=== PATIENT | female | born 1930 | race Caucasian/White ===

== ENCOUNTER 2018-12-29 14:53 | Inpatient (IN) | payer BC, MEDICARE ==
[2018-12-29] MEDS: morphine 2 MG INJ IV ×2 (16:11→21:42)
[2018-12-29] MEDS: ONDANSETRON 4 MG INJ IV ×3 (16:11→21:38)
[2018-12-29] MEDS: SOD CHLORIDE 0.9% 1,000 ML IV (16:12)
[2018-12-29 16:20] LABS: ADD MAN DIFF? NO
[2018-12-29 16:21] LABS: BASOPHIL # 0.1 10^3/ul (0.0-0.1); BASOPHILS % 0.3 % (0.0-2.0); HEMATOCRIT 40.5 % (37.0-47.0); LYMPHOCYTES # 2.1 10^3/ul (0.8-2.9); LYMPHOCYTES % 11.4 % (15.0-51.0); MEAN CORPUSCULAR HEMOGLOBIN 28.3 pg (29.0-33.0); MEAN CORPUSCULAR HGB CONC 32.1 g/dl (32.0-37.0); MEAN CORPUSCULAR VOLUME 88.2 fl (82.0-101.0); MEAN PLATELET VOLUME 11.1 fl (7.4-10.4); MONOCYTE # 1.4 10^3/ul (0.3-0.9); MONOCYTES % 7.7 % (0.0-11.0); NEUTROPHIL # 14.5 10^3/ul (1.6-7.5); NEUTROPHILS % 80.2 % (39.0-77.0); PLATELET COUNT 233 10^3/UL (140-415); RED BLOOD COUNT 4.59 10^6/ul (4.20-5.40); RED CELL DISTRIBUTION WIDTH 14.1 % (11.5-14.5)
[2018-12-29 16:21] LABS: WHITE BLOOD COUNT 18.1 10^3/ul (4.8-10.8)
[2018-12-29 16:27] LABS: ALANINE AMINOTRANSFERASE 16 IU/L (13-69); ALBUMIN 4.4 g/dl (3.3-4.9); ALBUMIN/GLOBULIN RATIO 1.62; ALKALINE PHOSPHATASE 77 IU/L (42-121); ANION GAP 8 (5-13); ASPARTATE AMINO TRANSFERASE 20 IU/L (15-46); BILIRUBIN,INDIRECT 0.3 mg/dl (0-1.1); BILIRUBIN,TOTAL 0.3 mg/dl (0.2-1.3); BLOOD UREA NITROGEN 18 mg/dl (7-20); CALCIUM 10.2 mg/dl (8.4-10.2); CARBON DIOXIDE 26 mmol/L (21-31); CHLORIDE 105 mmol/L (97-110); GLUCOSE 137 mg/dl (70-220); LIPASE 17 U/L (23-300); POTASSIUM 3.8 mmol/L (3.5-5.1); SODIUM 139 mmol/L (135-144); TOTAL PROTEIN 7.1 g/dl (6.1-8.1)
[2018-12-29 16:38] LABS: TROPONIN-I < 0.012 ng/ml (0.000-0.120)
[2018-12-29 16:59] LABS: ADD UMIC YES; UR ASCORBIC ACID NEGATIVE (NEGATIVE); UR BACTERIA FEW /HPF (NONE SEEN); UR BILIRUBIN (Dip) NEGATIVE (NEGATIVE); UR BLOOD (Dip) 3+ mg/dL (NEGATIVE); UR CLARITY CLOUDY (CLEAR); UR COLOR YELLOW (YELLOW); UR GLUCOSE (Dip) NEGATIVE (NEGATIVE); UR KETONES (Dip) NEGATIVE (NEGATIVE); UR LEUKOCYTE ESTERASE (Dip) TRACE Leu/ul (NEGATIVE); UR NITRITE (Dip) NEGATIVE (NEGATIVE); UR RBC 22 /HPF (0-5); UR SPECIFIC GRAVITY (Dip) 1.015 (1.003-1.030); UR TOTAL PROTEIN (Dip) NEGATIVE (NEGATIVE); UR UROBILINOGEN (Dip) NEGATIVE (NEGATIVE); UR WBC 25 /HPF (0-5)
[2018-12-29] MEDS ORDERED: morphine 4 MG/ML VIAL (17:37)
[2018-12-29] MEDS: morphine 4 MG/ML VIAL IV (17:45)
[2018-12-29] MEDS ORDERED: ACETAMINOPHEN 325 MG TAB PO (18:30)
[2018-12-29] MEDS ORDERED: ONDANSETRON 4 MG INJ IV (18:30)
[2018-12-29] MEDS: CYCLOSPORINE 0.05% OPH DROPERETTE BOTH EYES (21:00)
[2018-12-29] MEDS: POTASSIUM CHLORIDE 10 MEQ in SOD CHLORIDE 0.9% 1,000 ML IV (21:30)
[2018-12-29] MEDS: hydrALAzine 20 MG INJ IV (23:08)
[2018-12-29] MEDS: MEROPENEM 1 GM/50ML(PMX) 50 ML IVPB (23:11)
[2018-12-29] MEDS: DILTIAZEM 25 MG INJ IV (23:20)
[2018-12-30] MEDS: morphine 2 MG INJ IV ×4 (01:52→23:16)
[2018-12-30] MEDS: hydrALAzine 20 MG INJ IV ×2 (02:22→21:54)
[2018-12-30] MEDS: ONDANSETRON 4 MG INJ IV ×2 (04:34→10:45)
[2018-12-30] MEDS: DILTIAZEM 25 MG INJ IV ×3 (05:48→23:47)
[2018-12-30] MEDS: MEROPENEM 1 GM/50ML(PMX) 50 ML IVPB ×3 (05:48→21:58)
[2018-12-30 06:00] LABS: ADD MAN DIFF? NO
[2018-12-30] MEDS ORDERED: PANTOPRAZOLE 40 MG INJ IV (06:00)
[2018-12-30 06:09] LABS: BASOPHILS % 0.2 % (0.0-2.0); HEMATOCRIT 40.6 % (37.0-47.0); HEMOGLOBIN 13.1 g/dl (12.0-16.0); LYMPHOCYTES % 5.4 % (15.0-51.0); MEAN CORPUSCULAR HEMOGLOBIN 28.4 pg (29.0-33.0); MEAN CORPUSCULAR HGB CONC 32.3 g/dl (32.0-37.0); MEAN CORPUSCULAR VOLUME 87.9 fl (82.0-101.0); MEAN PLATELET VOLUME 10.5 fl (7.4-10.4); MONOCYTE # 1.3 10^3/ul (0.3-0.9); MONOCYTES % 6.7 % (0.0-11.0); NEUTROPHIL # 16.5 10^3/ul (1.6-7.5); NEUTROPHILS % 87.2 % (39.0-77.0); PLATELET COUNT 235 10^3/UL (140-415); RED BLOOD COUNT 4.62 10^6/ul (4.20-5.40); RED CELL DISTRIBUTION WIDTH 14.3 % (11.5-14.5)
[2018-12-30 06:09] LABS: WHITE BLOOD COUNT 18.9 10^3/ul (4.8-10.8)
[2018-12-30 06:30] LABS: ALANINE AMINOTRANSFERASE 20 IU/L (13-69); ALBUMIN 3.4 g/dl (3.3-4.9); ALBUMIN/GLOBULIN RATIO 1.41; ALKALINE PHOSPHATASE 67 IU/L (42-121); ANION GAP 3 (5-13); ASPARTATE AMINO TRANSFERASE 15 IU/L (15-46); BILIRUBIN,INDIRECT 0.4 mg/dl (0-1.1); BILIRUBIN,TOTAL 0.4 mg/dl (0.2-1.3); BLOOD UREA NITROGEN 14 mg/dl (7-20); CALCIUM 9.2 mg/dl (8.4-10.2); CARBON DIOXIDE 25 mmol/L (21-31); CHLORIDE 110 mmol/L (97-110); CREATININE 0.46 mg/dl (0.44-1.00); GLUCOSE 123 mg/dl (70-220); POTASSIUM 3.9 mmol/L (3.5-5.1); SODIUM 138 mmol/L (135-144); TOTAL PROTEIN 5.8 g/dl (6.1-8.1)
[2018-12-30 06:32] LABS: DIGOXIN 0.4 ng/ml (1.0-2.0)
[2018-12-30] MEDS ORDERED: ENOXAPARIN 30 MG/0.3 ML SYG SC (09:00)
[2018-12-30] MEDS: CYCLOSPORINE 0.05% OPH DROPERETTE BOTH EYES ×2 (09:00→21:00)
[2018-12-30] MEDS: FAMOTIDINE 20 MG INJ IV ×2 (09:07→21:53)
[2018-12-30 10:14] LABS: INR 2.54; PROTIME 27.4 Sec (11.9-14.9); PT RATIO 2.1
[2018-12-30] MEDS: POTASSIUM CHLORIDE 10 MEQ in SOD CHLORIDE 0.9% 1,000 ML IV ×2 (10:36→17:36)
[2018-12-30] MEDS: DIGOXIN 500 MCG INJ IV (12:38)
[2018-12-30] MEDS: PHYTONADIONE 10 MG in DEXTROSE 5% 50 ML IVPB ×2 (13:07→23:35)
[2018-12-30] MEDS: LEVALBUTEROL (NEB) 0.63 MG/3 ML AMP HHN (16:42)
[2018-12-30 17:05] LABS: INR 1.64; PROTIME 19.5 Sec (11.9-14.9); PT RATIO 1.5
[2018-12-30 17:06] LABS: PARTIAL THROMBOPLASTIN TIME 34.1 Sec (23.0-35.0)
[2018-12-30] MEDS: LORAZEPAM 2 MG INJ IV (18:30)
[2018-12-30] MEDS: MOMETASONE 0.24 GM INHALER INH (21:47)
[2018-12-31] MEDS: ONDANSETRON 4 MG INJ IV (03:53)
[2018-12-31] MEDS: LORAZEPAM 2 MG INJ IV (03:54)
[2018-12-31] MEDS: POTASSIUM CHLORIDE 10 MEQ in SOD CHLORIDE 0.9% 1,000 ML IV ×3 (03:58→23:45)
[2018-12-31] MEDS: MEROPENEM 1 GM/50ML(PMX) 50 ML IVPB ×3 (05:21→21:30)
[2018-12-31] MEDS: DILTIAZEM 25 MG INJ IV ×5 (05:21→23:35)
[2018-12-31 06:08] LABS: ADD MAN DIFF? NO
[2018-12-31 06:17] LABS: WHITE BLOOD COUNT 11.2 10^3/ul (4.8-10.8)
[2018-12-31 06:17] LABS: BASOPHIL # 0.1 10^3/ul (0.0-0.1); BASOPHILS % 0.6 % (0.0-2.0); EOSINOPHILS % 0.2 % (0.0-7.0); HEMATOCRIT 38.3 % (37.0-47.0); HEMOGLOBIN 12.3 g/dl (12.0-16.0); LYMPHOCYTES # 1.5 10^3/ul (0.8-2.9); LYMPHOCYTES % 13.2 % (15.0-51.0); MEAN CORPUSCULAR HEMOGLOBIN 28.7 pg (29.0-33.0); MEAN CORPUSCULAR HGB CONC 32.1 g/dl (32.0-37.0); MEAN CORPUSCULAR VOLUME 89.3 fl (82.0-101.0); MEAN PLATELET VOLUME 10.6 fl (7.4-10.4); MONOCYTE # 1.2 10^3/ul (0.3-0.9); MONOCYTES % 10.3 % (0.0-11.0); NEUTROPHIL # 8.5 10^3/ul (1.6-7.5); NEUTROPHILS % 75.2 % (39.0-77.0); PLATELET COUNT 178 10^3/UL (140-415); RED BLOOD COUNT 4.29 10^6/ul (4.20-5.40); RED CELL DISTRIBUTION WIDTH 14.5 % (11.5-14.5)
[2018-12-31 06:32] LABS: INR 1.14; PROTIME 14.7 Sec (11.9-14.9); PT RATIO 1.1
[2018-12-31 06:33] LABS: PARTIAL THROMBOPLASTIN TIME 29.1 Sec (23.0-35.0)
[2018-12-31 06:49] LABS: ALANINE AMINOTRANSFERASE 22 IU/L (13-69); ALBUMIN 3.2 g/dl (3.3-4.9); ALBUMIN/GLOBULIN RATIO 1.23; ALKALINE PHOSPHATASE 76 IU/L (42-121); ANION GAP 6 (5-13); ASPARTATE AMINO TRANSFERASE 15 IU/L (15-46); BILIRUBIN,INDIRECT 0.7 mg/dl (0-1.1); BILIRUBIN,TOTAL 0.7 mg/dl (0.2-1.3); BLOOD UREA NITROGEN 8 mg/dl (7-20); CALCIUM 9.2 mg/dl (8.4-10.2); CARBON DIOXIDE 25 mmol/L (21-31); CHLORIDE 108 mmol/L (97-110); CREATININE 0.43 mg/dl (0.44-1.00); GLUCOSE 94 mg/dl (70-220); MAGNESIUM 1.9 mg/dl (1.7-2.5); POTASSIUM 3.7 mmol/L (3.5-5.1); SODIUM 139 mmol/L (135-144); TOTAL PROTEIN 5.8 g/dl (6.1-8.1)
[2018-12-31] MEDS: MOMETASONE 0.24 GM INHALER INH ×2 (08:27→20:00)
[2018-12-31] MEDS: CYCLOSPORINE 0.05% OPH DROPERETTE BOTH EYES ×2 (08:29→21:00)
[2018-12-31] MEDS: FAMOTIDINE 20 MG INJ IV ×2 (08:30→21:31)
[2018-12-31] MEDS ORDERED: DILTIAZEM 25 MG INJ IV (12:00)
[2018-12-31] MEDS: DIGOXIN 500 MCG INJ IV (12:53)
[2018-12-31] MEDS: morphine 2 MG INJ IV ×2 (13:07→21:32)
[2018-12-31] MEDS: POTASSIUM CHLORIDE 100 ML IVPB (14:01)
[2018-12-31] MEDS: MAGNESIUM SULFATE 2 GM/50 ML 50 ML IVPB (15:57)
[2018-12-31] MEDS: hydrALAzine 20 MG INJ IV (21:31)
[2019-01-01] MEDS: POTASSIUM CHLORIDE 10 MEQ in SOD CHLORIDE 0.9% 1,000 ML IV ×2 (05:20→20:09)
[2019-01-01] MEDS: DILTIAZEM 25 MG INJ IV ×3 (05:25→18:00)
[2019-01-01] MEDS: MEROPENEM 1 GM/50ML(PMX) 50 ML IVPB ×3 (05:26→23:43)
[2019-01-01 05:38] LABS: ADD MAN DIFF? NO
[2019-01-01 05:56] LABS: BASOPHIL # 0.1 10^3/ul (0.0-0.1); BASOPHILS % 0.5 % (0.0-2.0); EOSINOPHILS # 0.2 10^3/ul (0.0-0.5); EOSINOPHILS % 1.7 % (0.0-7.0); HEMATOCRIT 41.1 % (37.0-47.0); HEMOGLOBIN 13.4 g/dl (12.0-16.0); LYMPHOCYTES # 1.7 10^3/ul (0.8-2.9); LYMPHOCYTES % 15.3 % (15.0-51.0); MEAN CORPUSCULAR HEMOGLOBIN 28.6 pg (29.0-33.0); MEAN CORPUSCULAR HGB CONC 32.6 g/dl (32.0-37.0); MEAN CORPUSCULAR VOLUME 87.8 fl (82.0-101.0); MEAN PLATELET VOLUME 10.3 fl (7.4-10.4); MONOCYTE # 1.1 10^3/ul (0.3-0.9); MONOCYTES % 9.8 % (0.0-11.0); NEUTROPHIL # 7.9 10^3/ul (1.6-7.5); NEUTROPHILS % 72.2 % (39.0-77.0); PLATELET COUNT 184 10^3/UL (140-415); RED BLOOD COUNT 4.68 10^6/ul (4.20-5.40); RED CELL DISTRIBUTION WIDTH 14.3 % (11.5-14.5)
[2019-01-01 06:15] LABS: INR 1.03; PROTIME 13.6 Sec (11.9-14.9); PT RATIO 1.1
[2019-01-01 06:16] LABS: PARTIAL THROMBOPLASTIN TIME 29.5 Sec (23.0-35.0)
[2019-01-01 06:17] LABS: ANION GAP 8 (5-13); BLOOD UREA NITROGEN 8 mg/dl (7-20); CALCIUM 9.2 mg/dl (8.4-10.2); CARBON DIOXIDE 24 mmol/L (21-31); CHLORIDE 105 mmol/L (97-110); CREATININE 0.39 mg/dl (0.44-1.00); GLUCOSE 80 mg/dl (70-220); MAGNESIUM 2.3 mg/dl (1.7-2.5); POTASSIUM 4.3 mmol/L (3.5-5.1); SODIUM 137 mmol/L (135-144)
[2019-01-01] MEDS ORDERED: DESFLURANE 15 MIN (07:00)
[2019-01-01] MEDS: MOMETASONE 0.24 GM INHALER INH ×2 (08:35→20:08)
[2019-01-01] MEDS: CYCLOSPORINE 0.05% OPH DROPERETTE BOTH EYES ×2 (08:37→20:08)
[2019-01-01] MEDS: FAMOTIDINE 20 MG INJ IV ×2 (08:37→20:08)
[2019-01-01] MEDS: DIGOXIN 500 MCG INJ IV (12:28)
[2019-01-01] MEDS ORDERED: FENTAnyl 50 MCG/ML VIAL IV (16:30)
[2019-01-01] MEDS ORDERED: hydrALAzine 20 MG INJ IV (16:30)
[2019-01-01] MEDS ORDERED: METOCLOPRAMIDE 10 MG INJ IV (16:30)
[2019-01-01] MEDS ORDERED: ONDANSETRON 4 MG INJ IV (16:30)
[2019-01-01] MEDS ORDERED: LABETALOL HCL 20MG INJ IV (16:30)
[2019-01-01] MEDS ORDERED: ALBUTEROL 0.083% (NEB) 2.5 MG/3 ML AMP HHN (16:30)
[2019-01-01] MEDS ORDERED: FENTAnyl 50 MCG/ML VIAL (16:37)
[2019-01-01] MEDS ORDERED: ROPIVACAINE 0.5 % 30 ML VIAL (16:37)
[2019-01-01] MEDS ORDERED: CLINDAMYCIN 600 MG/D5W (PMX) 50 ML IVPB (17:09)
[2019-01-01] MEDS ORDERED: PROPOFOL 20 ML (17:09)
[2019-01-01] MEDS ORDERED: SUGAMMADEX SODIUM 200 MG/2 ML VIAL IV (17:09)
[2019-01-01] MEDS ORDERED: SUCCINYLCHOLINE CHLORIDE 100 MG/5 ML SYG IV (17:09)
[2019-01-01] MEDS ORDERED: LIDOCAINE 100 MG SYRINGE (17:09)
[2019-01-01] MEDS ORDERED: ROCURONIUM 50 MG INJ (17:09)
[2019-01-02] MEDS: DILTIAZEM 25 MG INJ IV ×4 (00:28→17:47)
[2019-01-02] MEDS: MEROPENEM 1 GM/50ML(PMX) 50 ML IVPB ×3 (05:26→19:58)
[2019-01-02 06:08] LABS: ADD MAN DIFF? NO
[2019-01-02 06:13] LABS: BASOPHIL # 0.1 10^3/ul (0.0-0.1); BASOPHILS % 0.5 % (0.0-2.0); EOSINOPHILS # 0.2 10^3/ul (0.0-0.5); EOSINOPHILS % 1.4 % (0.0-7.0); HEMATOCRIT 38.5 % (37.0-47.0); HEMOGLOBIN 12.3 g/dl (12.0-16.0); LYMPHOCYTES % 7.4 % (15.0-51.0); MEAN CORPUSCULAR HEMOGLOBIN 28.1 pg (29.0-33.0); MEAN CORPUSCULAR HGB CONC 31.9 g/dl (32.0-37.0); MEAN CORPUSCULAR VOLUME 88.1 fl (82.0-101.0); MEAN PLATELET VOLUME 10.3 fl (7.4-10.4); MONOCYTE # 1.2 10^3/ul (0.3-0.9); MONOCYTES % 9.4 % (0.0-11.0); NEUTROPHIL # 10.6 10^3/ul (1.6-7.5); NEUTROPHILS % 80.5 % (39.0-77.0); PLATELET COUNT 199 10^3/UL (140-415); RED BLOOD COUNT 4.37 10^6/ul (4.20-5.40); RED CELL DISTRIBUTION WIDTH 13.7 % (11.5-14.5)
[2019-01-02 06:13] LABS: WHITE BLOOD COUNT 13.1 10^3/ul (4.8-10.8)
[2019-01-02 06:42] LABS: ALANINE AMINOTRANSFERASE 19 IU/L (13-69); ALBUMIN 3.1 g/dl (3.3-4.9); ALBUMIN/GLOBULIN RATIO 1.14; ALKALINE PHOSPHATASE 63 IU/L (42-121); ANION GAP 9 (5-13); ASPARTATE AMINO TRANSFERASE 15 IU/L (15-46); BILIRUBIN,INDIRECT 0.7 mg/dl (0-1.1); BILIRUBIN,TOTAL 0.7 mg/dl (0.2-1.3); BLOOD UREA NITROGEN 11 mg/dl (7-20); CARBON DIOXIDE 22 mmol/L (21-31); CHLORIDE 105 mmol/L (97-110); CREATININE 0.45 mg/dl (0.44-1.00); GLUCOSE 77 mg/dl (70-220); MAGNESIUM 2.2 mg/dl (1.7-2.5); POTASSIUM 4.3 mmol/L (3.5-5.1); SODIUM 136 mmol/L (135-144); TOTAL PROTEIN 5.8 g/dl (6.1-8.1)
[2019-01-02 06:44] LABS: INR 1.09; PROTIME 14.2 Sec (11.9-14.9); PT RATIO 1.1
[2019-01-02] MEDS: MOMETASONE 0.24 GM INHALER INH ×2 (09:00→19:57)
[2019-01-02] MEDS: CYCLOSPORINE 0.05% OPH DROPERETTE BOTH EYES ×2 (09:08→19:57)
[2019-01-02] MEDS: SERTRALINE 50 MG TAB PO (09:08)
[2019-01-02] MEDS: ENOXAPARIN 30 MG/0.3 ML SYG SC (09:23)
[2019-01-02] MEDS: FAMOTIDINE 20 MG INJ IV (10:20)
[2019-01-02] MEDS: DIGOXIN 500 MCG INJ IV (12:58)
[2019-01-02] MEDS: WARFARIN 5 MG TAB PO (17:38)
[2019-01-03] MEDS: DILTIAZEM 25 MG INJ IV ×3 (00:45→12:16)
[2019-01-03 05:38] LABS: ADD MAN DIFF? NO
[2019-01-03 05:41] LABS: WHITE BLOOD COUNT 10.1 10^3/ul (4.8-10.8)
[2019-01-03 05:41] LABS: BASOPHIL # 0.1 10^3/ul (0.0-0.1); BASOPHILS % 0.6 % (0.0-2.0); EOSINOPHILS # 0.3 10^3/ul (0.0-0.5); EOSINOPHILS % 3.1 % (0.0-7.0); HEMATOCRIT 37.7 % (37.0-47.0); HEMOGLOBIN 12.3 g/dl (12.0-16.0); LYMPHOCYTES # 1.6 10^3/ul (0.8-2.9); LYMPHOCYTES % 15.6 % (15.0-51.0); MEAN CORPUSCULAR HEMOGLOBIN 28.7 pg (29.0-33.0); MEAN CORPUSCULAR HGB CONC 32.6 g/dl (32.0-37.0); MEAN CORPUSCULAR VOLUME 88.1 fl (82.0-101.0); MEAN PLATELET VOLUME 10.5 fl (7.4-10.4); MONOCYTE # 1.1 10^3/ul (0.3-0.9); MONOCYTES % 10.9 % (0.0-11.0); NEUTROPHILS % 69.1 % (39.0-77.0); PLATELET COUNT 202 10^3/UL (140-415); RED BLOOD COUNT 4.28 10^6/ul (4.20-5.40); RED CELL DISTRIBUTION WIDTH 13.9 % (11.5-14.5)
[2019-01-03 05:59] LABS: INR 0.97
[2019-01-03 06:00] LABS: PARTIAL THROMBOPLASTIN TIME 29.7 Sec (23.0-35.0)
[2019-01-03 06:10] LABS: ALANINE AMINOTRANSFERASE 23 IU/L (13-69); ALBUMIN 3.2 g/dl (3.3-4.9); ALBUMIN/GLOBULIN RATIO 1.28; ALKALINE PHOSPHATASE 59 IU/L (42-121); ANION GAP 5 (5-13); ASPARTATE AMINO TRANSFERASE 19 IU/L (15-46); BILIRUBIN,INDIRECT 0.6 mg/dl (0-1.1); BILIRUBIN,TOTAL 0.6 mg/dl (0.2-1.3); BLOOD UREA NITROGEN 12 mg/dl (7-20); CALCIUM 9.7 mg/dl (8.4-10.2); CARBON DIOXIDE 26 mmol/L (21-31); CHLORIDE 106 mmol/L (97-110); CREATININE 0.41 mg/dl (0.44-1.00); GLUCOSE 91 mg/dl (70-220); MAGNESIUM 2.4 mg/dl (1.7-2.5); PHOSPHORUS 2.1 mg/dl (2.5-4.9); POTASSIUM 3.9 mmol/L (3.5-5.1); SODIUM 137 mmol/L (135-144); TOTAL PROTEIN 5.7 g/dl (6.1-8.1)
[2019-01-03] MEDS: MEROPENEM 1 GM/50ML(PMX) 50 ML IVPB ×3 (06:11→20:10)
[2019-01-03] MEDS: morphine 2 MG INJ IV (06:11)
[2019-01-03] MEDS: FAMOTIDINE 20 MG TAB PO (09:01)
[2019-01-03] MEDS: SERTRALINE 50 MG TAB PO (09:01)
[2019-01-03] MEDS: MOMETASONE 0.24 GM INHALER INH ×2 (09:02→20:11)
[2019-01-03] MEDS: NEUTRA-PHOS 250 MG PACKET PO (09:02)
[2019-01-03] MEDS: CYCLOSPORINE 0.05% OPH DROPERETTE BOTH EYES ×2 (09:06→20:10)
[2019-01-03] MEDS: ENOXAPARIN 30 MG/0.3 ML SYG SC (09:28)
[2019-01-03] MEDS: DIGOXIN 500 MCG INJ IV (13:13)
[2019-01-03] MEDS ORDERED: DILTIAZEM 25 MG INJ IV (15:30)
[2019-01-03] MEDS: ACETAMINOPHEN 500 MG TAB PO (18:05)
[2019-01-03] MEDS: CREON (24K-76K-120K) 1 CAP PO (18:15)
[2019-01-03] MEDS: DILTIAZEM 30 MG TAB PO (20:11)
[2019-01-04] MEDS: ACETAMINOPHEN 500 MG TAB PO (00:02)
[2019-01-04 06:07] LABS: ADD MAN DIFF? NO
[2019-01-04 06:08] LABS: WHITE BLOOD COUNT 8.5 10^3/ul (4.8-10.8)
[2019-01-04 06:08] LABS: BASOPHIL # 0.1 10^3/ul (0.0-0.1); BASOPHILS % 0.8 % (0.0-2.0); EOSINOPHILS # 0.4 10^3/ul (0.0-0.5); EOSINOPHILS % 4.1 % (0.0-7.0); HEMATOCRIT 38.3 % (37.0-47.0); HEMOGLOBIN 12.2 g/dl (12.0-16.0); LYMPHOCYTES # 1.4 10^3/ul (0.8-2.9); LYMPHOCYTES % 16.8 % (15.0-51.0); MEAN CORPUSCULAR HEMOGLOBIN 28.4 pg (29.0-33.0); MEAN CORPUSCULAR HGB CONC 31.9 g/dl (32.0-37.0); MEAN CORPUSCULAR VOLUME 89.1 fl (82.0-101.0); MEAN PLATELET VOLUME 10.4 fl (7.4-10.4); MONOCYTE # 0.9 10^3/ul (0.3-0.9); MONOCYTES % 10.5 % (0.0-11.0); NEUTROPHIL # 5.7 10^3/ul (1.6-7.5); NEUTROPHILS % 67.1 % (39.0-77.0); PLATELET COUNT 212 10^3/UL (140-415); RED CELL DISTRIBUTION WIDTH 13.8 % (11.5-14.5)
[2019-01-04] MEDS: MEROPENEM 1 GM/50ML(PMX) 50 ML IVPB ×3 (06:29→21:12)
[2019-01-04 06:33] LABS: ALANINE AMINOTRANSFERASE 19 IU/L (13-69); ALBUMIN 3.1 g/dl (3.3-4.9); ALBUMIN/GLOBULIN RATIO 1.24; ALKALINE PHOSPHATASE 57 IU/L (42-121); ANION GAP 7 (5-13); ASPARTATE AMINO TRANSFERASE 15 IU/L (15-46); BILIRUBIN,INDIRECT 0.5 mg/dl (0-1.1); BILIRUBIN,TOTAL 0.5 mg/dl (0.2-1.3); BLOOD UREA NITROGEN 15 mg/dl (7-20); CARBON DIOXIDE 26 mmol/L (21-31); CHLORIDE 106 mmol/L (97-110); GLUCOSE 72 mg/dl (70-220); MAGNESIUM 2.4 mg/dl (1.7-2.5); PHOSPHORUS 2.3 mg/dl (2.5-4.9); POTASSIUM 3.6 mmol/L (3.5-5.1); SODIUM 139 mmol/L (135-144); TOTAL PROTEIN 5.6 g/dl (6.1-8.1)
[2019-01-04 07:35] LABS: PROTIME 12.3 Sec (11.9-14.9)
[2019-01-04] MEDS: CYCLOSPORINE 0.05% OPH DROPERETTE BOTH EYES ×2 (09:00→21:12)
[2019-01-04] MEDS: NEUTRA-PHOS 250 MG PACKET PO ×2 (09:24→21:12)
[2019-01-04] MEDS: CREON (24K-76K-120K) 1 CAP PO ×3 (09:24→17:23)
[2019-01-04] MEDS: MOMETASONE 0.24 GM INHALER INH ×2 (09:24→20:00)
[2019-01-04] MEDS: SERTRALINE 50 MG TAB PO (09:25)
[2019-01-04] MEDS: DILTIAZEM 30 MG TAB PO ×3 (09:25→21:13)
[2019-01-04] MEDS: FAMOTIDINE 20 MG TAB PO (09:25)
[2019-01-04] MEDS: ENOXAPARIN 60 MG/0.6 ML SYG SC (09:36)
[2019-01-04] MEDS: DIGOXIN 0.125 MG TAB PO (13:28)
[2019-01-04] MEDS: WARFARIN 5 MG TAB PO (17:23)
[2019-01-05 06:00] LABS: ADD MAN DIFF? NO
[2019-01-05 06:10] LABS: WHITE BLOOD COUNT 8.3 10^3/ul (4.8-10.8)
[2019-01-05 06:10] LABS: BASOPHIL # 0.1 10^3/ul (0.0-0.1); BASOPHILS % 0.7 % (0.0-2.0); EOSINOPHILS # 0.2 10^3/ul (0.0-0.5); EOSINOPHILS % 2.9 % (0.0-7.0); HEMATOCRIT 37.1 % (37.0-47.0); HEMOGLOBIN 11.9 g/dl (12.0-16.0); LYMPHOCYTES # 1.4 10^3/ul (0.8-2.9); LYMPHOCYTES % 17.1 % (15.0-51.0); MEAN CORPUSCULAR HEMOGLOBIN 28.7 pg (29.0-33.0); MEAN CORPUSCULAR HGB CONC 32.1 g/dl (32.0-37.0); MEAN CORPUSCULAR VOLUME 89.6 fl (82.0-101.0); MEAN PLATELET VOLUME 10.4 fl (7.4-10.4); MONOCYTE # 0.8 10^3/ul (0.3-0.9); MONOCYTES % 10.2 % (0.0-11.0); NEUTROPHIL # 5.7 10^3/ul (1.6-7.5); NEUTROPHILS % 68.5 % (39.0-77.0); PLATELET COUNT 223 10^3/UL (140-415); RED BLOOD COUNT 4.14 10^6/ul (4.20-5.40); RED CELL DISTRIBUTION WIDTH 13.5 % (11.5-14.5)
[2019-01-05 06:31] LABS: INR 0.93; PROTIME 12.6 Sec (11.9-14.9)
[2019-01-05 06:58] LABS: ALANINE AMINOTRANSFERASE 21 IU/L (13-69); ALBUMIN 3.1 g/dl (3.3-4.9); ALBUMIN/GLOBULIN RATIO 1.24; ALKALINE PHOSPHATASE 57 IU/L (42-121); ANION GAP 9 (5-13); ASPARTATE AMINO TRANSFERASE 14 IU/L (15-46); BILIRUBIN,INDIRECT 0.4 mg/dl (0-1.1); BILIRUBIN,TOTAL 0.4 mg/dl (0.2-1.3); BLOOD UREA NITROGEN 13 mg/dl (7-20); CALCIUM 9.9 mg/dl (8.4-10.2); CARBON DIOXIDE 26 mmol/L (21-31); CHLORIDE 105 mmol/L (97-110); CREATININE 0.39 mg/dl (0.44-1.00); GLUCOSE 87 mg/dl (70-220); MAGNESIUM 2.3 mg/dl (1.7-2.5); PHOSPHORUS 2.5 mg/dl (2.5-4.9); POTASSIUM 3.9 mmol/L (3.5-5.1); SODIUM 140 mmol/L (135-144); TOTAL PROTEIN 5.6 g/dl (6.1-8.1)
[2019-01-05] MEDS: SERTRALINE 50 MG TAB PO (08:26)
[2019-01-05] MEDS: MEROPENEM 1 GM/50ML(PMX) 50 ML IVPB ×2 (08:26→20:39)
[2019-01-05] MEDS: CYCLOSPORINE 0.05% OPH DROPERETTE BOTH EYES ×2 (08:26→20:38)
[2019-01-05] MEDS: FAMOTIDINE 20 MG TAB PO (08:26)
[2019-01-05] MEDS: CREON (24K-76K-120K) 1 CAP PO ×3 (08:26→17:42)
[2019-01-05] MEDS: NEUTRA-PHOS 250 MG PACKET PO ×2 (08:26→20:39)
[2019-01-05] MEDS: MOMETASONE 0.24 GM INHALER INH ×2 (08:28→21:51)
[2019-01-05] MEDS: ENOXAPARIN 60 MG/0.6 ML SYG SC (08:31)
[2019-01-05] MEDS: DILTIAZEM 30 MG TAB PO ×3 (08:35→20:39)
[2019-01-05] MEDS: DIGOXIN 0.125 MG TAB PO (13:14)
[2019-01-05] MEDS: WARFARIN 5 MG TAB PO (17:43)
[2019-01-06 06:56] LABS: INR 1.02; PROTIME 13.5 Sec (11.9-14.9); PT RATIO 1.1
[2019-01-06 07:11] LABS: PHOSPHORUS 2.9 mg/dl (2.5-4.9)
[2019-01-06] MEDS: SERTRALINE 50 MG TAB PO (08:44)
[2019-01-06] MEDS: CYCLOSPORINE 0.05% OPH DROPERETTE BOTH EYES ×2 (08:44→20:36)
[2019-01-06] MEDS: FAMOTIDINE 20 MG TAB PO (08:44)
[2019-01-06] MEDS: CREON (24K-76K-120K) 1 CAP PO ×3 (08:44→17:37)
[2019-01-06] MEDS: MEROPENEM 1 GM/50ML(PMX) 50 ML IVPB ×2 (08:45→20:37)
[2019-01-06] MEDS: DILTIAZEM 30 MG TAB PO ×3 (08:45→20:37)
[2019-01-06] MEDS: ENOXAPARIN 60 MG/0.6 ML SYG SC (09:03)
[2019-01-06] MEDS: NEUTRA-PHOS 250 MG PACKET PO ×2 (09:06→20:36)
[2019-01-06] MEDS: MOMETASONE 0.24 GM INHALER INH ×2 (09:06→20:36)
[2019-01-06] MEDS: MAGNESIUM HYDROXIDE 30ML CUP PO (09:55)
[2019-01-06] MEDS: DIGOXIN 0.125 MG TAB PO (12:45)
[2019-01-06] MEDS: WARFARIN 5 MG TAB PO (17:37)
[2019-01-07] MEDS: CREON (24K-76K-120K) 1 CAP PO ×3 (08:12→17:54)
[2019-01-07] MEDS: FAMOTIDINE 20 MG TAB PO (08:12)
[2019-01-07] MEDS: NEUTRA-PHOS 250 MG PACKET PO ×2 (08:12→21:26)
[2019-01-07] MEDS: SERTRALINE 50 MG TAB PO (08:12)
[2019-01-07] MEDS: DILTIAZEM 30 MG TAB PO ×3 (08:14→21:00)
[2019-01-07] MEDS: MEROPENEM 1 GM/50ML(PMX) 50 ML IVPB ×2 (08:14→21:27)
[2019-01-07] MEDS: MOMETASONE 0.24 GM INHALER INH ×2 (08:21→21:26)
[2019-01-07] MEDS: ENOXAPARIN 60 MG/0.6 ML SYG SC (08:40)
[2019-01-07] MEDS: CYCLOSPORINE 0.05% OPH DROPERETTE BOTH EYES ×2 (08:46→21:00)
[2019-01-07] MEDS: DIGOXIN 0.125 MG TAB PO (12:32)
[2019-01-07] MEDS: HYDROCODONE/APAP (5/325) TAB PO (16:41)
[2019-01-07] MEDS: WARFARIN 5 MG TAB PO (16:42)
[2019-01-08] MEDS: NEUTRA-PHOS 250 MG PACKET PO ×2 (08:29→21:10)
[2019-01-08] MEDS: CREON (24K-76K-120K) 1 CAP PO ×3 (08:29→17:14)
[2019-01-08] MEDS: FAMOTIDINE 20 MG TAB PO (08:29)
[2019-01-08] MEDS: DILTIAZEM 30 MG TAB PO ×3 (08:29→21:00)
[2019-01-08] MEDS: MEROPENEM 1 GM/50ML(PMX) 50 ML IVPB ×2 (08:30→21:10)
[2019-01-08] MEDS: SERTRALINE 50 MG TAB PO (08:30)
[2019-01-08] MEDS: ENOXAPARIN 60 MG/0.6 ML SYG SC (08:54)
[2019-01-08 10:29] LABS: INR 1.32; PROTIME 16.5 Sec (11.9-14.9); PT RATIO 1.3
[2019-01-08] MEDS: MOMETASONE 0.24 GM INHALER INH ×2 (12:11→20:00)
[2019-01-08] MEDS: CYCLOSPORINE 0.05% OPH DROPERETTE BOTH EYES ×2 (12:11→21:00)
[2019-01-08] MEDS: DIGOXIN 0.125 MG TAB PO (12:13)
[2019-01-08] MEDS: WARFARIN 5 MG TAB PO (17:14)
[2019-01-09 06:12] LABS: ADD MAN DIFF? NO
[2019-01-09 06:23] LABS: WHITE BLOOD COUNT 5.7 10^3/ul (4.8-10.8)
[2019-01-09 06:23] LABS: BASOPHIL # 0.1 10^3/ul (0.0-0.1); BASOPHILS % 1.2 % (0.0-2.0); EOSINOPHILS # 0.3 10^3/ul (0.0-0.5); EOSINOPHILS % 4.4 % (0.0-7.0); HEMATOCRIT 37.5 % (37.0-47.0); HEMOGLOBIN 11.9 g/dl (12.0-16.0); LYMPHOCYTES # 1.8 10^3/ul (0.8-2.9); LYMPHOCYTES % 31.7 % (15.0-51.0); MEAN CORPUSCULAR HEMOGLOBIN 28.7 pg (29.0-33.0); MEAN CORPUSCULAR HGB CONC 31.7 g/dl (32.0-37.0); MEAN CORPUSCULAR VOLUME 90.6 fl (82.0-101.0); MEAN PLATELET VOLUME 10.5 fl (7.4-10.4); MONOCYTE # 0.5 10^3/ul (0.3-0.9); MONOCYTES % 8.8 % (0.0-11.0); NEUTROPHILS % 53.4 % (39.0-77.0); PLATELET COUNT 261 10^3/UL (140-415); RED BLOOD COUNT 4.14 10^6/ul (4.20-5.40); RED CELL DISTRIBUTION WIDTH 14.1 % (11.5-14.5)
[2019-01-09 06:41] LABS: ANION GAP 2 (5-13); BLOOD UREA NITROGEN 19 mg/dl (7-20); CALCIUM 10.1 mg/dl (8.4-10.2); CARBON DIOXIDE 30 mmol/L (21-31); CHLORIDE 108 mmol/L (97-110); CREATININE 0.45 mg/dl (0.44-1.00); GLUCOSE 91 mg/dl (70-220); MAGNESIUM 2.6 mg/dl (1.7-2.5); PHOSPHORUS 3.2 mg/dl (2.5-4.9); POTASSIUM 4.4 mmol/L (3.5-5.1); SODIUM 140 mmol/L (135-144)
[2019-01-09 06:44] LABS: INR 1.37; PT RATIO 1.3
[2019-01-09] MEDS: CREON (24K-76K-120K) 1 CAP PO ×3 (08:31→17:13)
[2019-01-09] MEDS: MEROPENEM 1 GM/50ML(PMX) 50 ML IVPB ×2 (08:33→20:47)
[2019-01-09] MEDS: ENOXAPARIN 60 MG/0.6 ML SYG SC (08:48)
[2019-01-09] MEDS: FAMOTIDINE 20 MG TAB PO (09:03)
[2019-01-09] MEDS: DILTIAZEM 30 MG TAB PO ×3 (09:03→20:46)
[2019-01-09] MEDS: SERTRALINE 50 MG TAB PO (09:04)
[2019-01-09] MEDS: NEUTRA-PHOS 250 MG PACKET PO ×2 (09:04→20:47)
[2019-01-09] MEDS: MOMETASONE 0.24 GM INHALER INH ×2 (09:05→20:46)
[2019-01-09] MEDS: CYCLOSPORINE 0.05% OPH DROPERETTE BOTH EYES ×2 (09:08→20:46)
[2019-01-09] MEDS: DIGOXIN 0.125 MG TAB PO (13:29)
[2019-01-09] MEDS: WARFARIN 5 MG TAB PO (17:57)
[2019-01-10 06:07] LABS: ADD MAN DIFF? NO
[2019-01-10 06:18] LABS: BASOPHIL # 0.1 10^3/ul (0.0-0.1); BASOPHILS % 1.3 % (0.0-2.0); EOSINOPHILS # 0.2 10^3/ul (0.0-0.5); EOSINOPHILS % 4.1 % (0.0-7.0); HEMATOCRIT 35.1 % (37.0-47.0); HEMOGLOBIN 10.9 g/dl (12.0-16.0); LYMPHOCYTES # 1.5 10^3/ul (0.8-2.9); LYMPHOCYTES % 32.5 % (15.0-51.0); MEAN CORPUSCULAR HEMOGLOBIN 28.3 pg (29.0-33.0); MEAN CORPUSCULAR HGB CONC 31.1 g/dl (32.0-37.0); MEAN CORPUSCULAR VOLUME 91.2 fl (82.0-101.0); MEAN PLATELET VOLUME 10.7 fl (7.4-10.4); MONOCYTE # 0.5 10^3/ul (0.3-0.9); MONOCYTES % 10.7 % (0.0-11.0); NEUTROPHIL # 2.4 10^3/ul (1.6-7.5); NEUTROPHILS % 50.8 % (39.0-77.0); PLATELET COUNT 259 10^3/UL (140-415); RED BLOOD COUNT 3.85 10^6/ul (4.20-5.40); RED CELL DISTRIBUTION WIDTH 14.1 % (11.5-14.5)
[2019-01-10 06:18] LABS: WHITE BLOOD COUNT 4.7 10^3/ul (4.8-10.8)
[2019-01-10 06:35] LABS: ANION GAP 2 (5-13); BLOOD UREA NITROGEN 15 mg/dl (7-20); CALCIUM 9.8 mg/dl (8.4-10.2); CARBON DIOXIDE 31 mmol/L (21-31); CHLORIDE 108 mmol/L (97-110); CREATININE 0.45 mg/dl (0.44-1.00); GLUCOSE 86 mg/dl (70-220); POTASSIUM 4.2 mmol/L (3.5-5.1); SODIUM 141 mmol/L (135-144)
[2019-01-10 07:45] LABS: INR 1.37; PT RATIO 1.3
[2019-01-10] MEDS: CREON (24K-76K-120K) 1 CAP PO ×3 (08:58→17:26)
[2019-01-10] MEDS: DILTIAZEM 30 MG TAB PO ×3 (08:59→20:42)
[2019-01-10] MEDS: NEUTRA-PHOS 250 MG PACKET PO ×2 (08:59→20:40)
[2019-01-10] MEDS: SERTRALINE 50 MG TAB PO (08:59)
[2019-01-10] MEDS: FAMOTIDINE 20 MG TAB PO (08:59)
[2019-01-10] MEDS: ENOXAPARIN 60 MG/0.6 ML SYG SC (09:09)
[2019-01-10] MEDS: CYCLOSPORINE 0.05% OPH DROPERETTE BOTH EYES ×2 (10:46→20:40)
[2019-01-10] MEDS: MOMETASONE 0.24 GM INHALER INH ×2 (10:46→23:17)
[2019-01-10] MEDS: DIGOXIN 0.125 MG TAB PO (11:55)
[2019-01-10] MEDS: morphine 2 MG INJ IV (13:00)
[2019-01-10] MEDS: LEVALBUTEROL (NEB) 0.63 MG/3 ML AMP HHN (13:03)
[2019-01-10] MEDS: WARFARIN 5 MG TAB PO (17:26)
[2019-01-11 05:53] LABS: ADD MAN DIFF? NO
[2019-01-11 05:57] LABS: BASOPHIL # 0.1 10^3/ul (0.0-0.1); BASOPHILS % 1.1 % (0.0-2.0); EOSINOPHILS # 0.2 10^3/ul (0.0-0.5); EOSINOPHILS % 3.4 % (0.0-7.0); HEMATOCRIT 36.6 % (37.0-47.0); HEMOGLOBIN 11.4 g/dl (12.0-16.0); LYMPHOCYTES # 1.9 10^3/ul (0.8-2.9); LYMPHOCYTES % 34.2 % (15.0-51.0); MEAN CORPUSCULAR HEMOGLOBIN 28.2 pg (29.0-33.0); MEAN CORPUSCULAR HGB CONC 31.1 g/dl (32.0-37.0); MEAN CORPUSCULAR VOLUME 90.6 fl (82.0-101.0); MEAN PLATELET VOLUME 10.5 fl (7.4-10.4); MONOCYTE # 0.5 10^3/ul (0.3-0.9); MONOCYTES % 9.4 % (0.0-11.0); NEUTROPHIL # 2.9 10^3/ul (1.6-7.5); NEUTROPHILS % 51.4 % (39.0-77.0); PLATELET COUNT 278 10^3/UL (140-415); RED BLOOD COUNT 4.04 10^6/ul (4.20-5.40)
[2019-01-11 05:57] LABS: WHITE BLOOD COUNT 5.6 10^3/ul (4.8-10.8)
[2019-01-11 06:17] LABS: ALANINE AMINOTRANSFERASE 27 IU/L (13-69); ALBUMIN 3.3 g/dl (3.3-4.9); ALBUMIN/GLOBULIN RATIO 1.32; ALKALINE PHOSPHATASE 62 IU/L (42-121); ANION GAP 3 (5-13); ASPARTATE AMINO TRANSFERASE 22 IU/L (15-46); BILIRUBIN,INDIRECT 0.3 mg/dl (0-1.1); BILIRUBIN,TOTAL 0.3 mg/dl (0.2-1.3); BLOOD UREA NITROGEN 13 mg/dl (7-20); CALCIUM 10.2 mg/dl (8.4-10.2); CARBON DIOXIDE 30 mmol/L (21-31); CHLORIDE 108 mmol/L (97-110); CREATININE 0.46 mg/dl (0.44-1.00); GLUCOSE 87 mg/dl (70-220); INR 1.38; MAGNESIUM 2.4 mg/dl (1.7-2.5); POTASSIUM 4.4 mmol/L (3.5-5.1); PROTIME 17.1 Sec (11.9-14.9); PT RATIO 1.3; SODIUM 141 mmol/L (135-144); TOTAL PROTEIN 5.8 g/dl (6.1-8.1)
[2019-01-11] MEDS: CREON (24K-76K-120K) 1 CAP PO ×3 (07:27→16:38)
[2019-01-11] MEDS: NEUTRA-PHOS 250 MG PACKET PO (07:28)
[2019-01-11] MEDS: CYCLOSPORINE 0.05% OPH DROPERETTE BOTH EYES (07:29)
[2019-01-11] MEDS: FAMOTIDINE 20 MG TAB PO (07:29)
[2019-01-11] MEDS: SERTRALINE 50 MG TAB PO (07:30)
[2019-01-11] MEDS: DILTIAZEM 30 MG TAB PO ×2 (07:31→11:54)
[2019-01-11] MEDS: MOMETASONE 0.24 GM INHALER INH (07:31)
[2019-01-11] MEDS: ENOXAPARIN 60 MG/0.6 ML SYG SC (08:04)
[2019-01-11] MEDS: DIGOXIN 0.125 MG TAB PO (11:53)
[2019-01-11] MEDS: WARFARIN 5 MG TAB PO ×2 (16:38)
== END 2019-01-11 21:20 | DRG 351 ==
LOC: 6WM 12-30 06:05 → E/R 14:53 → 6WM 18:28
PROC: 0YU60JZ Supplement Left Inguinal Region with Synthetic Substitute, Open Approach (ICD-10-PCS; principal; 2019-01-01 13:30)
DX: K40.30 Unilateral inguinal hernia, with obstruction, without gangrene, not specified as recurrent (principal); N39.0 Urinary tract infection, site not specified; D68.9 Coagulation defect, unspecified; K56.609 Unspecified intestinal obstruction, unspecified as to partial versus complete obstruction; R44.3 Hallucinations, unspecified; E83.39 Other disorders of phosphorus metabolism; I48.91 Unspecified atrial fibrillation; J44.9 Chronic obstructive pulmonary disease, unspecified; I49.5 Sick sinus syndrome; K21.9 Gastro-esophageal reflux disease without esophagitis; F41.9 Anxiety disorder, unspecified; F32.9 Major depressive disorder, single episode, unspecified; Z95.0 Presence of cardiac pacemaker; Z79.01 Long term (current) use of anticoagulants
CPT/HCPCS: 36415; 71045; 74018; 74176; 80048; 80053; 80162; 81001; 83690; 83735; 84100; 84484; 85025; 85610; 85730; 87081; 87086; 93005; 93306; 94640; 96374; 96375; 96376; 97110; 97116; 97162; 97530; 99285-25

== ENCOUNTER 2019-04-09 07:52 | Inpatient (IN) | payer BC ==
[2019-04-09] MEDS: LACTATED RINGER'S 1,000 ML IV ×2 (09:00→21:05)
[2019-04-09] MEDS ORDERED: POLYMYXIN/BACITRACIN 1L IRRIG (09:24)
[2019-04-09 09:53] LABS: INR 0.97
[2019-04-09 09:55] LABS: PARTIAL THROMBOPLASTIN TIME 27.5 Sec (23.0-35.0)
[2019-04-09] MEDS ORDERED: SEVOFLURANE 15 MIN (11:00)
[2019-04-09] MEDS ORDERED: FENTAnyl 50 MCG/ML VIAL (11:11)
[2019-04-09] MEDS ORDERED: PROPOFOL 20 ML (11:11)
[2019-04-09] MEDS ORDERED: ONDANSETRON 4 MG INJ (11:13)
[2019-04-09] MEDS ORDERED: DEXAMETHASONE 4 MG/ML 5 ML INJ (11:13)
[2019-04-09] MEDS ORDERED: MEPERIDINE 25 MG INJ IV (11:30)
[2019-04-09] MEDS ORDERED: CLINDAMYCIN 600 MG/D5W (PMX) 50 ML IVPB (12:10)
[2019-04-09] MEDS ORDERED: PHENYLephrine (100 MCG/ML) 10ML SYG (12:11)
[2019-04-09] MEDS: BUPIVACAINE 0.25%/EPI (SDV) 10 ML INJ (12:50)
[2019-04-09] MEDS: LIDOCAINE 1% (MPF) 30 ML INJ (12:51)
[2019-04-09] MEDS ORDERED: LEVALBUTEROL (NEB) 0.63 MG/3 ML AMP HHN (13:30)
[2019-04-09] MEDS ORDERED: hydrALAzine 20 MG INJ IV (13:30)
[2019-04-09] MEDS: PANTOPRAZOLE 40 MG INJ IV (13:30)
[2019-04-09] MEDS: ONDANSETRON 4 MG INJ IV (13:52)
[2019-04-09] MEDS: FENTAnyl 50 MCG/ML VIAL IV (13:53)
[2019-04-09] MEDS ORDERED: ONDANSETRON 4 MG INJ IV (14:00)
[2019-04-09] MEDS ORDERED: FAMOTIDINE 20 MG INJ (14:36)
[2019-04-09] MEDS: WARFARIN 5 MG TAB GTB (16:24)
[2019-04-09] MEDS: DILTIAZEM 30 MG TAB PO (17:49)
[2019-04-09] MEDS: morphine 2 MG INJ IV ×2 (17:49→21:18)
[2019-04-09] MEDS: MONTELUKAST 10 MG TAB PO (21:04)
[2019-04-09] MEDS: CYCLOSPORINE 0.05% OPH DROPERETTE BOTH EYES (21:04)
[2019-04-09] MEDS: MOMETASONE 0.24 GM INHALER INH (21:04)
[2019-04-10] MEDS: DILTIAZEM 30 MG TAB PO ×5 (00:19→23:03)
[2019-04-10] MEDS: morphine 2 MG INJ IV ×4 (03:38→23:04)
[2019-04-10 05:40] LABS: INR 0.92; PROTIME 12.5 Sec (11.9-14.9)
[2019-04-10 05:48] LABS: ALANINE AMINOTRANSFERASE 24 IU/L (13-69); ALBUMIN 2.9 g/dl (3.3-4.9); ALKALINE PHOSPHATASE 66 IU/L (42-121); ANION GAP 4 (5-13); ASPARTATE AMINO TRANSFERASE 14 IU/L (15-46); BILIRUBIN,INDIRECT 0.6 mg/dl (0-1.1); BILIRUBIN,TOTAL 0.6 mg/dl (0.2-1.3); BLOOD UREA NITROGEN 13 mg/dl (7-20); CALCIUM 9.4 mg/dl (8.4-10.2); CARBON DIOXIDE 28 mmol/L (21-31); CHLORIDE 106 mmol/L (97-110); CREATININE 0.56 mg/dl (0.44-1.00); GLUCOSE 113 mg/dl (70-220); MAGNESIUM 1.9 mg/dl (1.7-2.5); POTASSIUM 3.8 mmol/L (3.5-5.1); SODIUM 138 mmol/L (135-144); TOTAL PROTEIN 5.3 g/dl (6.1-8.1)
[2019-04-10] MEDS: LORATADINE 10 MG TAB PO (08:45)
[2019-04-10] MEDS: CREON PO ×3 (08:45→17:25)
[2019-04-10] MEDS: CYCLOSPORINE 0.05% OPH DROPERETTE BOTH EYES ×2 (08:46→20:26)
[2019-04-10] MEDS: MOMETASONE 0.24 GM INHALER INH ×2 (09:37→20:26)
[2019-04-10] MEDS: PANTOPRAZOLE (EC) 40 MG TAB PO (09:37)
[2019-04-10] MEDS: ACETAMINOPHEN 325 MG TAB PO (11:50)
[2019-04-10] MEDS: DIGOXIN 0.125 MG TAB PO (12:37)
[2019-04-10] MEDS: WARFARIN 5 MG TAB GTB (17:25)
[2019-04-10] MEDS: MONTELUKAST 10 MG TAB PO (20:26)
[2019-04-10] MEDS: SERTRALINE 50 MG TAB PO (23:03)
[2019-04-11] MEDS: morphine 2 MG INJ IV ×2 (03:47→13:11)
[2019-04-11] MEDS: PANTOPRAZOLE (EC) 40 MG TAB PO (05:26)
[2019-04-11] MEDS: DILTIAZEM 30 MG TAB PO ×4 (05:27→23:38)
[2019-04-11 05:52] LABS: ADD MAN DIFF? NO
[2019-04-11 06:03] LABS: BASOPHIL # 0.1 10^3/ul (0.0-0.1); BASOPHILS % 0.5 % (0.0-2.0); EOSINOPHILS # 0.2 10^3/ul (0.0-0.5); EOSINOPHILS % 1.6 % (0.0-7.0); HEMATOCRIT 32.8 % (37.0-47.0); HEMOGLOBIN 10.3 g/dl (12.0-16.0); LYMPHOCYTES # 2.3 10^3/ul (0.8-2.9); LYMPHOCYTES % 23.3 % (15.0-51.0); MEAN CORPUSCULAR HEMOGLOBIN 29.5 pg (29.0-33.0); MEAN CORPUSCULAR HGB CONC 31.4 g/dl (32.0-37.0); MEAN PLATELET VOLUME 10.9 fl (7.4-10.4); MONOCYTE # 0.9 10^3/ul (0.3-0.9); MONOCYTES % 9.3 % (0.0-11.0); NEUTROPHIL # 6.5 10^3/ul (1.6-7.5); NEUTROPHILS % 64.9 % (39.0-77.0); PLATELET COUNT 186 10^3/UL (140-415); RED BLOOD COUNT 3.49 10^6/ul (4.20-5.40); RED CELL DISTRIBUTION WIDTH 14.5 % (11.5-14.5)
[2019-04-11 06:23] LABS: INR 0.92; PROTIME 12.5 Sec (11.9-14.9)
[2019-04-11 06:24] LABS: ANION GAP 3 (5-13); BLOOD UREA NITROGEN 10 mg/dl (7-20); CALCIUM 9.4 mg/dl (8.4-10.2); CARBON DIOXIDE 30 mmol/L (21-31); CHLORIDE 106 mmol/L (97-110); CREATININE 0.55 mg/dl (0.44-1.00); GLUCOSE 92 mg/dl (70-220); MAGNESIUM 1.9 mg/dl (1.7-2.5); POTASSIUM 3.6 mmol/L (3.5-5.1); SODIUM 139 mmol/L (135-144)
[2019-04-11] MEDS: CREON PO ×3 (08:28→18:10)
[2019-04-11] MEDS: LORATADINE 10 MG TAB PO (08:29)
[2019-04-11] MEDS: CYCLOSPORINE 0.05% OPH DROPERETTE BOTH EYES ×2 (08:29→20:33)
[2019-04-11] MEDS: MOMETASONE 0.24 GM INHALER INH ×2 (08:30→20:32)
[2019-04-11] MEDS: LACTATED RINGER'S 1,000 ML IV ×2 (09:00→13:17)
[2019-04-11 11:29] LABS: ADD UMIC YES; UR ASCORBIC ACID NEGATIVE (NEGATIVE); UR BILIRUBIN (Dip) NEGATIVE (NEGATIVE); UR BLOOD (Dip) 1+ mg/dL (NEGATIVE); UR CLARITY CLEAR (CLEAR); UR COLOR YELLOW (YELLOW); UR GLUCOSE (Dip) NEGATIVE (NEGATIVE); UR KETONES (Dip) NEGATIVE (NEGATIVE); UR LEUKOCYTE ESTERASE (Dip) NEGATIVE Leu/ul (NEGATIVE); UR NITRITE (Dip) NEGATIVE (NEGATIVE); UR RBC 1 /HPF (0-5); UR SPECIFIC GRAVITY (Dip) 1.009 (1.003-1.030); UR TOTAL PROTEIN (Dip) NEGATIVE (NEGATIVE); UR UROBILINOGEN (Dip) NEGATIVE (NEGATIVE); UR WBC 2 /HPF (0-5)
[2019-04-11] MEDS: DIGOXIN 0.125 MG TAB PO (13:11)
[2019-04-11] MEDS: WARFARIN 5 MG TAB GTB (18:10)
[2019-04-11] MEDS: SERTRALINE 50 MG TAB PO (20:32)
[2019-04-11] MEDS: MONTELUKAST 10 MG TAB PO (20:32)
[2019-04-12] MEDS: ACETAMINOPHEN 325 MG TAB PO ×4 (01:18→20:42)
[2019-04-12 05:07] LABS: ADD MAN DIFF? NO
[2019-04-12 05:09] LABS: WHITE BLOOD COUNT 8.3 10^3/ul (4.8-10.8)
[2019-04-12 05:09] LABS: BASOPHILS % 0.4 % (0.0-2.0); EOSINOPHILS # 0.2 10^3/ul (0.0-0.5); EOSINOPHILS % 1.9 % (0.0-7.0); HEMATOCRIT 31.8 % (37.0-47.0); LYMPHOCYTES % 24.4 % (15.0-51.0); MEAN CORPUSCULAR HEMOGLOBIN 29.6 pg (29.0-33.0); MEAN CORPUSCULAR HGB CONC 31.4 g/dl (32.0-37.0); MEAN CORPUSCULAR VOLUME 94.1 fl (82.0-101.0); MONOCYTE # 0.9 10^3/ul (0.3-0.9); MONOCYTES % 11.2 % (0.0-11.0); NEUTROPHIL # 5.1 10^3/ul (1.6-7.5); NEUTROPHILS % 61.7 % (39.0-77.0); PLATELET COUNT 156 10^3/UL (140-415); RED BLOOD COUNT 3.38 10^6/ul (4.20-5.40); RED CELL DISTRIBUTION WIDTH 14.2 % (11.5-14.5)
[2019-04-12] MEDS: DILTIAZEM 30 MG TAB PO ×3 (05:17→18:39)
[2019-04-12] MEDS: PANTOPRAZOLE (EC) 40 MG TAB PO (05:19)
[2019-04-12 05:51] LABS: INR 1.02; PROTIME 13.5 Sec (11.9-14.9); PT RATIO 1.1
[2019-04-12 06:19] LABS: ANION GAP 3 (5-13); BLOOD UREA NITROGEN 10 mg/dl (7-20); CARBON DIOXIDE 27 mmol/L (21-31); CHLORIDE 105 mmol/L (97-110); GLUCOSE 87 mg/dl (70-220); POTASSIUM 3.8 mmol/L (3.5-5.1); SODIUM 135 mmol/L (135-144)
[2019-04-12] MEDS: CIPROFLOXACIN 250 MG TAB PO ×2 (08:35→18:38)
[2019-04-12] MEDS: CREON PO ×3 (08:55→17:45)
[2019-04-12] MEDS: CYCLOSPORINE 0.05% OPH DROPERETTE BOTH EYES ×2 (09:00→20:32)
[2019-04-12] MEDS: MOMETASONE 0.24 GM INHALER INH ×2 (09:27→21:21)
[2019-04-12] MEDS: MAGNESIUM HYDROXIDE 30ML CUP PO (09:27)
[2019-04-12] MEDS: LORATADINE 10 MG TAB PO (09:27)
[2019-04-12] MEDS: DIGOXIN 0.125 MG TAB PO (13:32)
[2019-04-12] MEDS ORDERED: CIPROFLOXACIN 250 MG TAB PO (18:00)
[2019-04-12] MEDS: WARFARIN 5 MG TAB GTB (18:38)
[2019-04-12] MEDS: MONTELUKAST 10 MG TAB PO (20:37)
[2019-04-12] MEDS: SERTRALINE 50 MG TAB PO (20:37)
[2019-04-13 05:22] LABS: ADD MAN DIFF? NO
[2019-04-13 05:24] LABS: WHITE BLOOD COUNT 6.1 10^3/ul (4.8-10.8)
[2019-04-13 05:24] LABS: BASOPHILS % 0.7 % (0.0-2.0); EOSINOPHILS # 0.3 10^3/ul (0.0-0.5); EOSINOPHILS % 5.3 % (0.0-7.0); HEMATOCRIT 33.5 % (37.0-47.0); HEMOGLOBIN 10.7 g/dl (12.0-16.0); LYMPHOCYTES # 1.4 10^3/ul (0.8-2.9); LYMPHOCYTES % 23.8 % (15.0-51.0); MEAN CORPUSCULAR HEMOGLOBIN 29.3 pg (29.0-33.0); MEAN CORPUSCULAR HGB CONC 31.9 g/dl (32.0-37.0); MEAN CORPUSCULAR VOLUME 91.8 fl (82.0-101.0); MEAN PLATELET VOLUME 11.1 fl (7.4-10.4); MONOCYTE # 0.6 10^3/ul (0.3-0.9); MONOCYTES % 10.1 % (0.0-11.0); NEUTROPHIL # 3.6 10^3/ul (1.6-7.5); NEUTROPHILS % 59.8 % (39.0-77.0); PLATELET COUNT 179 10^3/UL (140-415); RED BLOOD COUNT 3.65 10^6/ul (4.20-5.40); RED CELL DISTRIBUTION WIDTH 14.1 % (11.5-14.5)
[2019-04-13] MEDS: DILTIAZEM 30 MG TAB PO ×5 (05:37→23:01)
[2019-04-13] MEDS: CIPROFLOXACIN 250 MG TAB PO ×2 (05:37→17:35)
[2019-04-13] MEDS: PANTOPRAZOLE (EC) 40 MG TAB PO (05:39)
[2019-04-13 05:49] LABS: INR 1.08; PROTIME 14.1 Sec (11.9-14.9); PT RATIO 1.1
[2019-04-13 06:03] LABS: ANION GAP 3 (5-13); BLOOD UREA NITROGEN 10 mg/dl (7-20); CALCIUM 9.3 mg/dl (8.4-10.2); CARBON DIOXIDE 29 mmol/L (21-31); CHLORIDE 107 mmol/L (97-110); CREATININE 0.46 mg/dl (0.44-1.00); GLUCOSE 88 mg/dl (70-220); POTASSIUM 4.3 mmol/L (3.5-5.1); SODIUM 139 mmol/L (135-144)
[2019-04-13] MEDS ORDERED: BISACODYL 10 MG SUPP PR (09:00)
[2019-04-13] MEDS: LACTATED RINGER'S 1,000 ML IV (09:00)
[2019-04-13] MEDS: MOMETASONE 0.24 GM INHALER INH ×2 (09:10→21:14)
[2019-04-13] MEDS: CYCLOSPORINE 0.05% OPH DROPERETTE BOTH EYES ×2 (09:10→21:13)
[2019-04-13] MEDS: CREON PO ×3 (09:10→17:35)
[2019-04-13] MEDS: LORATADINE 10 MG TAB PO (09:10)
[2019-04-13] MEDS: MAGNESIUM HYDROXIDE 30ML CUP PO (12:31)
[2019-04-13] MEDS: DIGOXIN 0.125 MG TAB PO (12:35)
[2019-04-13] MEDS: ACETAMINOPHEN 500 MG TAB PO (13:34)
[2019-04-13] MEDS: WARFARIN 5 MG TAB GTB (17:35)
[2019-04-13] MEDS: SERTRALINE 50 MG TAB PO (21:13)
[2019-04-13] MEDS: MONTELUKAST 10 MG TAB PO (21:13)
[2019-04-14] MEDS: ACETAMINOPHEN 500 MG TAB PO ×2 (00:58→09:23)
[2019-04-14] MEDS: DILTIAZEM 30 MG TAB PO ×4 (05:23→23:35)
[2019-04-14] MEDS: CIPROFLOXACIN 250 MG TAB PO ×2 (05:23→17:50)
[2019-04-14] MEDS: PANTOPRAZOLE (EC) 40 MG TAB PO ×2 (05:23→20:40)
[2019-04-14] MEDS: LACTATED RINGER'S 1,000 ML IV (08:21)
[2019-04-14] MEDS: MOMETASONE 0.24 GM INHALER INH ×2 (08:23→20:31)
[2019-04-14] MEDS: CREON PO ×3 (08:23→17:50)
[2019-04-14] MEDS: LORATADINE 10 MG TAB PO (08:23)
[2019-04-14] MEDS: CYCLOSPORINE 0.05% OPH DROPERETTE BOTH EYES ×2 (08:23→20:34)
[2019-04-14] MEDS: DIGOXIN 0.125 MG TAB PO (12:54)
[2019-04-14] MEDS: WARFARIN 5 MG TAB GTB (17:50)
[2019-04-14] MEDS: MONTELUKAST 10 MG TAB PO (20:31)
[2019-04-14] MEDS: SERTRALINE 50 MG TAB PO (20:31)
[2019-04-14] MEDS: ZOLPIDEM 5 MG TAB PO (23:31)
[2019-04-15 06:11] LABS: INR 1.38; PROTIME 17.1 Sec (11.9-14.9); PT RATIO 1.3
[2019-04-15] MEDS: CIPROFLOXACIN 250 MG TAB PO ×2 (06:45→17:28)
[2019-04-15] MEDS: DILTIAZEM 30 MG TAB PO ×3 (06:47→17:29)
[2019-04-15] MEDS: CYCLOSPORINE 0.05% OPH DROPERETTE BOTH EYES ×2 (08:47→20:04)
[2019-04-15] MEDS: MOMETASONE 0.24 GM INHALER INH ×2 (08:51→20:03)
[2019-04-15] MEDS: CREON PO ×3 (08:51→17:29)
[2019-04-15] MEDS: LORATADINE 10 MG TAB PO (08:51)
[2019-04-15] MEDS: DIGOXIN 0.125 MG TAB PO (13:11)
[2019-04-15] MEDS: ACETAMINOPHEN 500 MG TAB PO (15:34)
[2019-04-15] MEDS: WARFARIN 5 MG TAB GTB (17:28)
[2019-04-15] MEDS ORDERED: GUAIFENESIN/DM 5ML CUP PO (18:30)
[2019-04-15] MEDS: MONTELUKAST 10 MG TAB PO (20:03)
[2019-04-15] MEDS: SERTRALINE 50 MG TAB PO (20:03)
[2019-04-15] MEDS: DOCUSATE SODIUM 100 MG CAP PO (20:03)
[2019-04-15] MEDS: PANTOPRAZOLE (EC) 40 MG TAB PO (20:16)
[2019-04-16 05:03] LABS: ADD MAN DIFF? NO
[2019-04-16 05:10] LABS: WHITE BLOOD COUNT 6.7 10^3/ul (4.8-10.8)
[2019-04-16 05:10] LABS: BASOPHILS % 0.6 % (0.0-2.0); EOSINOPHILS # 0.4 10^3/ul (0.0-0.5); EOSINOPHILS % 5.7 % (0.0-7.0); HEMATOCRIT 32.3 % (37.0-47.0); HEMOGLOBIN 10.2 g/dl (12.0-16.0); LYMPHOCYTES # 1.8 10^3/ul (0.8-2.9); LYMPHOCYTES % 27.2 % (15.0-51.0); MEAN CORPUSCULAR HEMOGLOBIN 28.9 pg (29.0-33.0); MEAN CORPUSCULAR HGB CONC 31.6 g/dl (32.0-37.0); MEAN CORPUSCULAR VOLUME 91.5 fl (82.0-101.0); MEAN PLATELET VOLUME 10.9 fl (7.4-10.4); MONOCYTE # 0.6 10^3/ul (0.3-0.9); NEUTROPHIL # 3.8 10^3/ul (1.6-7.5); NEUTROPHILS % 57.1 % (39.0-77.0); PLATELET COUNT 208 10^3/UL (140-415); RED BLOOD COUNT 3.53 10^6/ul (4.20-5.40); RED CELL DISTRIBUTION WIDTH 14.4 % (11.5-14.5)
[2019-04-16] MEDS: CIPROFLOXACIN 250 MG TAB PO ×2 (05:41→17:37)
[2019-04-16] MEDS: DILTIAZEM 30 MG TAB PO ×5 (05:42→23:16)
[2019-04-16 06:13] LABS: ALANINE AMINOTRANSFERASE 19 IU/L (13-69); ALBUMIN 3.2 g/dl (3.3-4.9); ALBUMIN/GLOBULIN RATIO 1.28; ALKALINE PHOSPHATASE 57 IU/L (42-121); ANION GAP 3 (5-13); ASPARTATE AMINO TRANSFERASE 15 IU/L (15-46); BILIRUBIN,INDIRECT 0.2 mg/dl (0-1.1); BILIRUBIN,TOTAL 0.2 mg/dl (0.2-1.3); BLOOD UREA NITROGEN 12 mg/dl (7-20); CALCIUM 9.4 mg/dl (8.4-10.2); CARBON DIOXIDE 25 mmol/L (21-31); CHLORIDE 110 mmol/L (97-110); CREATININE 0.52 mg/dl (0.44-1.00); GLUCOSE 84 mg/dl (70-220); POTASSIUM 3.9 mmol/L (3.5-5.1); SODIUM 138 mmol/L (135-144); TOTAL PROTEIN 5.7 g/dl (6.1-8.1)
[2019-04-16] MEDS: CYCLOSPORINE 0.05% OPH DROPERETTE BOTH EYES ×2 (08:29→20:55)
[2019-04-16] MEDS: CREON PO ×3 (08:36→17:37)
[2019-04-16] MEDS: LORATADINE 10 MG TAB PO (08:36)
[2019-04-16] MEDS: MOMETASONE 0.24 GM INHALER INH ×2 (08:36→20:56)
[2019-04-16] MEDS: DIGOXIN 0.125 MG TAB PO (12:49)
[2019-04-16] MEDS: WARFARIN 5 MG TAB GTB (17:37)
[2019-04-16] MEDS: MONTELUKAST 10 MG TAB PO (20:57)
[2019-04-16] MEDS: DOCUSATE SODIUM 100 MG CAP PO (20:57)
[2019-04-16] MEDS: SERTRALINE 50 MG TAB PO (20:58)
[2019-04-17] MEDS: ACETAMINOPHEN 500 MG TAB PO (04:53)
[2019-04-17] MEDS: CIPROFLOXACIN 250 MG TAB PO (05:03)
[2019-04-17] MEDS: PANTOPRAZOLE (EC) 40 MG TAB PO (05:03)
[2019-04-17] MEDS: DILTIAZEM 30 MG TAB PO ×2 (05:04→13:42)
[2019-04-17 05:06] LABS: ADD MAN DIFF? NO
[2019-04-17 05:09] LABS: WHITE BLOOD COUNT 6.9 10^3/ul (4.8-10.8)
[2019-04-17 05:09] LABS: BASOPHIL # 0.1 10^3/ul (0.0-0.1); BASOPHILS % 0.9 % (0.0-2.0); EOSINOPHILS # 0.3 10^3/ul (0.0-0.5); EOSINOPHILS % 4.8 % (0.0-7.0); HEMATOCRIT 32.3 % (37.0-47.0); HEMOGLOBIN 10.1 g/dl (12.0-16.0); LYMPHOCYTES # 1.9 10^3/ul (0.8-2.9); LYMPHOCYTES % 28.2 % (15.0-51.0); MEAN CORPUSCULAR HEMOGLOBIN 28.7 pg (29.0-33.0); MEAN CORPUSCULAR HGB CONC 31.3 g/dl (32.0-37.0); MEAN CORPUSCULAR VOLUME 91.8 fl (82.0-101.0); MEAN PLATELET VOLUME 10.7 fl (7.4-10.4); MONOCYTE # 0.6 10^3/ul (0.3-0.9); MONOCYTES % 8.9 % (0.0-11.0); NEUTROPHIL # 3.9 10^3/ul (1.6-7.5); NEUTROPHILS % 56.5 % (39.0-77.0); PLATELET COUNT 214 10^3/UL (140-415); RED BLOOD COUNT 3.52 10^6/ul (4.20-5.40); RED CELL DISTRIBUTION WIDTH 14.3 % (11.5-14.5)
[2019-04-17 05:25] LABS: INR 1.44; PROTIME 17.6 Sec (11.9-14.9); PT RATIO 1.4
[2019-04-17 05:39] LABS: ANION GAP 5 (5-13); BLOOD UREA NITROGEN 13 mg/dl (7-20); CALCIUM 9.5 mg/dl (8.4-10.2); CARBON DIOXIDE 25 mmol/L (21-31); CHLORIDE 108 mmol/L (97-110); CREATININE 0.55 mg/dl (0.44-1.00); GLUCOSE 87 mg/dl (70-220); POTASSIUM 4.1 mmol/L (3.5-5.1); SODIUM 138 mmol/L (135-144)
[2019-04-17] MEDS: CREON PO ×2 (08:42→13:38)
[2019-04-17] MEDS: MOMETASONE 0.24 GM INHALER INH (08:42)
[2019-04-17] MEDS: LORATADINE 10 MG TAB PO (08:43)
[2019-04-17] MEDS: CYCLOSPORINE 0.05% OPH DROPERETTE BOTH EYES (08:44)
[2019-04-17] MEDS: DIGOXIN 0.125 MG TAB PO (13:42)
== END 2019-04-17 16:29 | disposition home health service (06) | DRG 351 ==
LOC: SDS 07:52 → REC 13:43 → MS1 14:48
PROC: 0YU70JZ Supplement Right Femoral Region with Synthetic Substitute, Open Approach (ICD-10-PCS; principal; 2019-04-09 10:30)
PROC: 0WUF0JZ Supplement Abdominal Wall with Synthetic Substitute, Open Approach (ICD-10-PCS; 2019-04-09 10:30)
DX: K43.9 Ventral hernia without obstruction or gangrene (principal); N39.0 Urinary tract infection, site not specified; K41.90 Unilateral femoral hernia, without obstruction or gangrene, not specified as recurrent; I48.0 Paroxysmal atrial fibrillation; Z79.01 Long term (current) use of anticoagulants; Z95.0 Presence of cardiac pacemaker; K21.9 Gastro-esophageal reflux disease without esophagitis; J45.998 Other asthma; J31.0 Chronic rhinitis; M35.00 Sjogren syndrome, unspecified; F32.9 Major depressive disorder, single episode, unspecified; D64.9 Anemia, unspecified
CPT/HCPCS: 71045; 80048; 80053; 81001; 83735; 85025; 85610; 85730; 87086; 88302; 93005; 97110; 97116; 97161; 97530